=== PATIENT | female | born 1960 | race Caucasian/White ===

== ENCOUNTER 2017-05-17 08:08 | Outpatient (CLI) | payer BC ==
--- NOTE | 2017-05-17 09:44 | MRI ---
MRI OF THE CERVICAL SPINE WITHOUT CONTRAST: Date: 05/17/17 INDICATION: Persistent neck pain for several months, with pain predominantly being at the base of the skull and b oth sides of the cervical spine. There is no reported history of trauma. There is no reported history of cervical spine surgery. TECHNIQUE: Multiplanar, multisequence MR images were obtained of the cervical spine without IV contrast. No radi ographic or MR comparisons are available. FINDINGS: The visualized posterior fossa is unremarkable. The bone marrow signal intensity is normal appearing. No acute fracture is evident. The C1-C2 articulation on sagittal series appear within normal limits. At C2-C3, there is mild to moderate bilateral facet joint degenerative change, but no appreciable aureliano tral canal or neural foraminal narrowing. At C3-4, there is prominent right and mild left SI joint degenerative change. The joint hypertrophy o n the right at C3-4 does cause mild narrowing of the right neural foramina. POS: CET
--- NOTE | 2017-05-18 07:10 | MRI ---
MRI OF THE CERVICAL SPINE WITHOUT CONTRAST: Date: 05/17/17 INDICATION: Persistent neck pain for several months, with pain predominantly being at the base of the skull and b oth sides of the cervical spine. There is no reported history of trauma. There is no reported history of cervical spine surgery. TECHNIQUE: Multiplanar, multisequence MR images were obtained of the cervical spine without IV contrast. No radi ographic or MR comparisons are available. FINDINGS: The visualized posterior fossa is unremarkable. The bone marrow signal intensity is normal appearing. No acute fracture is evident. The C1-C2 articulation on sagittal series appear within normal limits. At C2-C3, there is mild to moderate bilateral facet joint degenerative change, but no appreciable aureliano tral canal or neural foraminal narrowing. At C3-4, there is prominent right and mild left SI joint degenerative change. The joint hypertrophy o n the right at C3-4 does cause mild narrowing of the right neural foramina. At C4-5, there is mild to moderate bilateral facet osteoarthrosis at C4-5. There is no appreciable ce ntral canal or neural foraminal narrowing. At C5-6, there is mild to moderate bilateral facet osteoarthrosis without appreciable central canal o r neural foraminal narrowing. At C6-7, there is mild facet joint degenerative change without appreciable central canal or neural fo raminal narrowing. At C7-T1, there is no appreciable central canal or neural foraminal narrowing. IMPRESSION: Mild multilevel spondylosis of the cervical spine with mild right neural foraminal narrowing seen at C3-4 due to hypertrophy of the right facet joint. POS: CET
== END 2017-05-17 08:09 | disposition home or self-care (01) ==
LOC: SCSMRI 08:08
PROVIDERS: ATTEND Chiropractor
DX: M54.2 Cervicalgia (principal); M47.812 Spondylosis without myelopathy or radiculopathy, cervical region; M99.51 Intervertebral disc stenosis of neural canal of cervical region
CPT/HCPCS: 72141

== ENCOUNTER 2018-01-03 | Outpatient (CLI) | payer BC | END 2018-01-03 09:34 | disposition home or self-care (01) | DX: Z12.31 Encounter for screening mammogram for malignant neoplasm of breast (principal) ==

== ENCOUNTER 2019-01-07 10:58 | Outpatient (CLI) | payer BC ==
--- NOTE | 2019-01-07 11:51 | MMO ---
Bilateral MAMMO Bilat Screen [facility]. CLINICAL HISTORY: Patient is 58 years old and is seen for screening. The patient has no family history of breast cancer. The patient has no personal history of cancer. The patient has a history of right Stereotatic Biopsy in June, - fat necrosis and right Excisional Biopsy in 04/2004 - BENIGN. VIEWS: The views performed were: bilateral craniocaudal with tomosynthesis and bilateral mediolateral oblique with tomosynthesis. FILMS COMPARED: The present examination has been compared to prior imaging studies performed at [facility] on 06/26/2014, 01/06/2015, 11/30/2015 and 01/02/2017. MAMMOGRAM FINDINGS: There are scattered fibroglandular densities. Left breast: There are no suspicious masses, calcifications or areas of architectural distortion. Right breast: No suspicious mass or calcifications. Stable post op change and stable biopsy clip. There are no suspicious masses, suspicious calcifications, or new areas of architectural distortion. IMPRESSION: THERE IS NO MAMMOGRAPHIC EVIDENCE OF MALIGNANCY. A ROUTINE FOLLOW-UP MAMMOGRAM IN 1 YEAR IS RECOMMENDED. THE RESULTS OF THIS EXAM WERE SENT TO THE PATIENT. ACR BI-RADS Category 2 - Benign finding MAMMOGRAPHY NOTE: 1. A negative mammogram report should not delay a biopsy if a dominant of clinically suspicious mass is present. 2. Approximately 10% to 15% of breast cancers are not detected by mammography. 3. Adenosis and dense breasts may obscure an underlying neoplasm. Reported by: IVETH MICHELLE MD Electonically Signed: [id number]
== END 2019-01-07 10:59 | disposition home or self-care (01) ==
LOC: BICMAMMO 10:58
PROVIDERS: ATTEND Family Medicine
DX: Z12.31 Encounter for screening mammogram for malignant neoplasm of breast (principal); Z91.89 Other specified personal risk factors, not elsewhere classified
CPT/HCPCS: 77063; 77067

== ENCOUNTER 2021-02-09 09:40 | Outpatient (CLI) | payer BC | END 2021-02-09 09:41 | disposition home or self-care (01) | LOC: BICMAMMO 09:40 | PROVIDERS: ATTEND Family Medicine | DX: Z12.31 Encounter for screening mammogram for malignant neoplasm of breast (principal); Z91.89 Other specified personal risk factors, not elsewhere classified | CPT/HCPCS: 77063; 77067 ==